=== PATIENT | male | born 1945 | race Caucasian/White ===

== ENCOUNTER 2018-03-17 10:01 | Outpatient (CLI) | payer OTHER ==
--- NOTE | 2018-03-17 12:42 | ULT ---
ULTRASOUND THYROID: DATE: 03/17/18. HISTORY: Left thyroid nodule found on MRI in [place] last year. Report and images are not available. FINDINGS: Isthmus: 0.2 cm anteroposterior. Right lobe: 3.7 x 1.1 x 1.3 cm. Left lobe: 3.7 x 1.4 x 1.4 cm. FINDINGS: There is a 1.2 x 0.9 x 1.1 cm well-circumscribed simple cyst in the left mid pole. No solid thyroid nodule is identified. The thyroid parenchymal echogenicity is normal. IMPRESSION: 1. Benign 1.2 cm left thyroid simple cyst. 2. Otherwise, negative. POS: H
== END 2018-03-17 10:02 | disposition home or self-care (01) ==
LOC: SCSULT 10:01
PROVIDERS: ATTEND Internal Medicine
DX: E04.1 Nontoxic single thyroid nodule (principal)
CPT/HCPCS: 76536